=== PATIENT | male | born 2000 | race Caucasian/White ===

== ENCOUNTER 2023-07-14 04:22 | Emergency (ER) | payer OTHER ==
[~2023-07-14] VITALS: Ht 182.9 cm; Wt 77.3 kg
[2023-07-14 04:28] VITALS: TEMP 98
[2023-07-14] MEDS ORDERED: Ondansetron 4 MG/2 ML VIAL IV ONE (04:45)
[2023-07-14] MEDS ORDERED: NS 1,000 ML IV ONE (04:45)
[2023-07-14] MEDS ORDERED: Morphine 4 MG/ML VIAL IV ONE ×2 (04:45→05:45)
[2023-07-14] MEDS ORDERED: Ketorolac 30 MG/ML VIAL IV ONE (04:45)
[2023-07-14 04:54] LABS: BASO % 0.4 % (0.0-2.0); EOS # 0.1 K/mm3 (0.0-0.7); EOS % 1.2 % (0.0-4.0); GRAN # 8.2 K/mm3 (1.4-6.5); GRAN % 82.2 % (42.2-75.2); HEMATOCRIT 48.5 % (36.0-47.0); HEMOGLOBIN 16.5 g/dl (12.5-16.1); LYMPH # 0.8 K/mm3 (1.2-3.4); LYMPH % 7.7 % (20.0-51.0); MEAN CELL VOLUME 88 fl (80.0-95.0); MEAN CORPUSCULAR HEMOGLOBIN 30 pg (26-32); MEAN CORPUSCULAR HGB CONC 34 g/dl (33.0-37.0); MEAN PLATELET VOLUME 9.1 fl (7.4-10.4); MONO # 0.8 K/mm3 (0.1-0.6); MONO % 8.3 % (1.7-9.3); PLATELET COUNT 259 K/mm3 (130-400); RED BLOOD COUNT 5.54 M/mm3 (4.20-5.60); REDCELL DISTRIBUTION WIDTH-CV 12.6 % (11.5-14.5)
[2023-07-14] MEDS ORDERED: Iohexol 300 - 100 ML VIAL IV ONE (05:09)
[2023-07-14] MEDS ORDERED: NS 50 ML IV SCH (05:09)
[2023-07-14 05:13] LABS: ALBUMIN 4.4 g/dL (3.5-5.0); BILIRUBIN,TOTAL 1.6 mg/dL (0.2-1.2); C-REACTIVE PROTEIN 0.04 mg/dL (0.00-0.50); CALCIUM 9.6 mg/dL (8.4-10.2); CREATININE, serum 0.91 mg/dL (0.72-1.25); POTASSIUM 4.4 mEq/L (3.5-4.5); TOTAL PROTEIN 6.8 g/dl (6.2-8.1)
[2023-07-14 05:58] LABS: COLLECTION METHOD CLEAN CATCH
[2023-07-14] MEDS ORDERED: NAPROSYN500 MG PO (06:03)
[2023-07-14] MEDS ORDERED: ROXICODONE 55 MG/TAB PO (06:03)
[2023-07-14] MEDS ORDERED: ZOFRAN ODT4 MG PO (06:03)
[2023-07-14 06:06] LABS: PH 5.5 (5.0-8.5); URINE APPEARANCE CLEAR (CLEAR/HAZY); URINE BLOOD NEGATIVE (NEGATIVE); URINE COLOR YELLOW (YELLOW); URINE GLUCOSE NEGATIVE (NEGATIVE); URINE KETONE NEGATIVE (NEGATIVE); URINE NITRATE NEGATIVE (NEGATIVE); URINE PROTEIN(semi-quant) 1+ (NEGATIVE)
[2023-07-14 06:33] VITALS: BP 112/67; PULSE 81
[2023-07-14] MEDS ORDERED: ZESTRIL 20MG TA20 MG PO (23:32)
[2023-07-14] MEDS ORDERED: ASPIRIN 81M81 MG/TA2 PO (23:33)
== END 2023-07-14 06:43 | disposition home or self-care (01) ==
LOC: COL.ER 04:22
PROVIDERS: Emergency Medicine
DX: R10.9 Unspecified abdominal pain (principal); R11.2 Nausea with vomiting, unspecified
CPT/HCPCS: J1885; J2270; J2405; J7030; Q9967

== ENCOUNTER 2023-07-14 17:52 | Observation (INO) | payer OTHER ==
[~2023-07-14] VITALS: Ht 182.9 cm; Wt 74.1 kg
[~2023-07-14 17:52] MED LIST changes: -AMOXICILLIN 8751 TAB PO; -ASPIRIN 81M81 MG/TA2 PO; -ZESTRIL 20MG TA20 MG PO; -ZOFRAN 4MG T4 MG/TAB PO
[2023-07-14] MEDS ORDERED: NS 1,000 ML IV ONE ×2 (18:30→21:00)
[2023-07-14] MEDS ORDERED: Ondansetron 4 MG/2 ML VIAL IV ONE (18:30)
[2023-07-14 18:53] LABS: HEMATOCRIT 48.1 % (36.0-47.0); HEMOGLOBIN 16.5 g/dl (12.5-16.1); MEAN CELL VOLUME 87 fl (80.0-95.0); MEAN CORPUSCULAR HEMOGLOBIN 30 pg (26-32); MEAN CORPUSCULAR HGB CONC 34 g/dl (33.0-37.0); MEAN PLATELET VOLUME 9.3 fl (7.4-10.4); PLATELET COUNT 334 K/mm3 (130-400); RED BLOOD COUNT 5.53 M/mm3 (4.20-5.60); REDCELL DISTRIBUTION WIDTH-CV 12.4 % (11.5-14.5)
[2023-07-14] MEDS ORDERED: Ketorolac 15 MG/ML VIAL IV ONE (19:00)
[2023-07-14 19:12] LABS: ALBUMIN 4.7 g/dL (3.5-5.0); BILIRUBIN,TOTAL 2.3 mg/dL (0.2-1.2); CALCIUM 9.9 mg/dL (8.4-10.2); CREATININE, serum 0.87 mg/dL (0.72-1.25); POTASSIUM 4.2 mEq/L (3.5-4.5); TOTAL PROTEIN 7.2 g/dl (6.2-8.1)
[2023-07-14 19:20] LABS: BASOPHIL 1 % (0-2); LYMPHOCYTE 3 % (20.0-51.0); NEUTROPHILS 93 % (42.0-75.2)
[2023-07-14] MEDS ORDERED: droPERidol 2.5 MG/ML 2 ML VIAL IV ONE (19:30)
[2023-07-14] MEDS ORDERED: NS 50 ML IV SCH (19:44)
[2023-07-14] MEDS ORDERED: Iohexol 300 - 100 ML VIAL IV ONE (19:44)
[2023-07-14] MEDS ORDERED: Morphine 4 MG/ML VIAL IV ONE (20:45)
[2023-07-14 23:23] LABS: COLLECTION METHOD CLEAN CATCH
[2023-07-14] MEDS ORDERED: ZESTRIL 20MG TA20 MG PO (23:32)
[2023-07-14] MEDS ORDERED: ASPIRIN 81M81 MG/TA2 PO (23:33)
[2023-07-14 23:47] LABS: URINE APPEARANCE CLEAR (CLEAR/HAZY); URINE BLOOD NEGATIVE (NEGATIVE); URINE COLOR YELLOW (YELLOW); URINE GLUCOSE NEGATIVE (NEGATIVE); URINE KETONE 2+ (NEGATIVE); URINE NITRATE NEGATIVE (NEGATIVE); URINE PROTEIN(semi-quant) 1+ (NEGATIVE); URINE UROBILINOGEN 0.2 E.U/dL (0.2-1.0)
[2023-07-15] VITALS (12 sets, daily range): BP systolic 110–149; BP diastolic 53–86; PULSE 64–85; TEMP 97.9–98.9
--- NOTE | 2023-07-15 00:04 | NUR ---
pt arrived to room 347 from ED at 2355. pt ambulated to bed with little to no nausea. pt now resting in bed. admission, physical assessment, and med rec complete. call light in reach. all needs met at this time.
[2023-07-15] MEDS ORDERED: Ondansetron 4 MG/2 ML VIAL IV PRN (00:15)
[2023-07-15] MEDS ORDERED: Morphine 4 MG/ML VIAL IV PRN (00:30)
[2023-07-15] MEDS ORDERED: oxyCODONE 5 MG TAB PO PRN (00:30)
--- NOTE | 2023-07-15 00:56 | NUR ---
pt c/o 09/22 low back pain radiating to abd. prn morphine administered per orders.
--- NOTE | 2023-07-15 05:19 | NUR ---
pt c/o increased low back pain. pain rated 6/10. prn oxycodone administered per orders.
--- NOTE | 2023-07-15 06:26 | NUR ---
pt c/o continued low back pain. rated 6/10. prn morphine administered per orders.
--- NOTE | 2023-07-15 09:10 | NUR ---
Fl[employer]per met with patient to complete intake for discharge planning. Patient shared that he lives in [place] with his girlfriend Dang Barnes ([phone]). He lists his mother Wes Talbot ([phone]) as his next of kin. Patient sees Dr. Miguel as his PCP and uses [facility] without difficulty. Patient has R insurance. 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 Patient denies any discharge needs at this time. Patient is hopeful to not need IV antibiotics at discharge. Discharge plan: Home
--- NOTE | 2023-07-15 12:56 | NUR ---
PT RESTING IN BED, PO PAIN MEDS KEEPING PAIN CONTROLLED. NOTHER AT BEDSIDE. QUESTIONS SOLICITED AND ANSWERED. DR MODI IN TO SEE PT THIS AM.
--- NOTE | 2023-07-15 19:13 | NUR ---
report received from carlos mariano. pt resting in bed with mom at bedside. pt reporting prn given by previous shift has relieved his pain. call light in reach. all needs met at this time.
--- NOTE | 2023-07-15 20:34 | NUR ---
shift assessment complete, see documentation. pt resting in bed watching tv. pt reports pain is managable right now. call light in reach. all needs met at this time.
--- NOTE | 2023-07-15 22:12 | NUR ---
pt reporting increased pain rated 6/10. prn oxycodone administered per orders.
[2023-07-16 00:13] VITALS: BP 131/79; PULSE 78; TEMP 98.3
--- NOTE | 2023-07-16 00:40 | NUR ---
pt reported nausea when he went to use the bathroom. small emesis episode noted. green in color with some mucous noted. prn zofran administered per orders. sprite and saltine crackers given. pt asymptomatic otherwise.
[2023-07-16 01:16] VITALS: BP_SYST 131
--- NOTE | 2023-07-16 02:00 | NUR ---
pt reporting nausea has subsided and he tolerated crackers/sprite without issue. pt now reporting 8/10 left sided low back pain. prn oxycodone administered per orders.
[2023-07-16 03:54] VITALS: BP 122/70; PULSE 83; TEMP 98.2
[2023-07-16 05:24] VITALS: BP_SYST 122
--- NOTE | 2023-07-16 06:11 | NUR ---
pt reporting increased pain rated 7/10. prn oxycodone administered per orders.
[2023-07-16 07:07] LABS: BASO % 0.5 % (0.0-2.0); EOS % 0.4 % (0.0-4.0); GRAN % 74.9 % (42.2-75.2); LYMPH # 0.8 K/mm3 (1.2-3.4); LYMPH % 9.8 % (20.0-51.0); MEAN CELL VOLUME 89 fl (80.0-95.0); MEAN CORPUSCULAR HGB CONC 34 g/dl (33.0-37.0); MEAN PLATELET VOLUME 9.7 fl (7.4-10.4); MONO # 1.1 K/mm3 (0.1-0.6); RED BLOOD COUNT 4.85 M/mm3 (4.20-5.60); REDCELL DISTRIBUTION WIDTH-CV 12.2 % (11.5-14.5)
[2023-07-16 07:09] LABS: HEMOGLOBIN 14.5 g/dl (12.5-16.1); MEAN CORPUSCULAR HEMOGLOBIN 30 pg (26-32); PLATELET COUNT 227 K/mm3 (130-400)
[2023-07-16 07:25] LABS: ALBUMIN 4.3 g/dL (3.5-5.0); BILIRUBIN,DIRECT 0.5 mg/dL (0.0-0.5); BILIRUBIN,TOTAL 3.2 mg/dL (0.2-1.2); TOTAL PROTEIN 6.3 g/dl (6.2-8.1)
[2023-07-16 08:02] VITALS: BP 119/69; PULSE 82; TEMP 98.9
[2023-07-16] MEDS ORDERED: ROXICODONE 55 MG/TAB PO (08:30)
[2023-07-16] MEDS ORDERED: ZOFRAN 4MG T4 MG/TAB PO (08:35)
--- NOTE | 2023-07-16 08:47 | NUR ---
PT RESTING IN BED. PAIN CONTROLLED WITH PO MEDS. DR GUZMAN IN TO ROUND ON PT. PLAN ON DISCHARGE LATER TODAY.
[2023-07-16 09:00] VITALS: BP_SYST 119
[2023-07-16] MEDS ORDERED: AMOXICILLIN 8751 TAB PO (09:53)
--- NOTE | 2023-07-16 10:31 | NUR ---
DISCHARGE INSTRUCTIONS REVIEWED WITH PT AND FAMILY. QUESTIONS SOLICITED. PT SHOWERED INDEPENDENTLY PRIOR TO DISCHARGE. PT LEFT UNIT AMBULATORY WITH STAFF.
== END 2023-07-16 10:33 | disposition home or self-care (01) ==
LOC: COL.ER 17:52 → SURG 23:07 → COL.ER 23:07 → SURG 07-16 10:33
PROVIDERS: Internal Medicine Gastroenterology; Physician Assistant; ADMIT Internal Medicine
DX: A41.9 Sepsis, unspecified organism (principal); L72.0 Epidermal cyst; R19.09 Other intra-abdominal and pelvic swelling, mass and lump; R82.81 Pyuria; E80.7 Disorder of bilirubin metabolism, unspecified
CPT/HCPCS: OP; G0378; J1790; J1885; J2270; J2405; J2543; J7030; Q9967

== ENCOUNTER → 2023-07-14 | Outpatient (CLI) | payer OTHER ==
[~2023-07-14] MED LIST: AMOXICILLIN 8751 TAB PO; ASPIRIN 81M81 MG/TA2 PO; NAPROSYN500 MG PO; ROXICODONE 55 MG/TAB PO; ZESTRIL 20MG TA20 MG PO; ZOFRAN 4MG T4 MG/TAB PO; ZOFRAN ODT4 MG PO
== END ==
LOC: COL.RAD 08:50
DX: R59.0 Localized enlarged lymph nodes (principal)

== ENCOUNTER 2023-09-04 08:59 | Emergency (ER) | payer OTHER ==
[~2023-09-04] VITALS: Ht 182.9 cm; Wt 72.7 kg
[~2023-09-04 08:59] MED LIST changes: +AMOXICILLIN 8751 TAB PO; +ASPIRIN 81M81 MG/TA2 PO; +ZESTRIL 20MG TA20 MG PO; +ZOFRAN 4MG T4 MG/TAB PO
[2023-09-04 09:03] VITALS: TEMP 98.6
[2023-09-04] MEDS ORDERED: NS 1,000 ML IV ONE (09:15)
[2023-09-04] MEDS ORDERED: Iohexol 300 - 100 ML VIAL IV ONE (09:24)
[2023-09-04] MEDS ORDERED: NS 100 ML IV SCH (09:25)
[2023-09-04 09:32] LABS: BASO % 0.5 % (0.0-2.0); EOS # 0.2 K/mm3 (0.0-0.7); EOS % 2.7 % (0.0-4.0); GRAN # 3.5 K/mm3 (1.4-6.5); GRAN % 64.4 % (42.2-75.2); HEMATOCRIT 45.6 % (36.0-47.0); HEMOGLOBIN 15.2 g/dl (12.5-16.1); LYMPH # 1.2 K/mm3 (1.2-3.4); LYMPH % 21.4 % (20.0-51.0); MEAN CELL VOLUME 88 fl (80.0-95.0); MEAN CORPUSCULAR HEMOGLOBIN 29 pg (26-32); MEAN CORPUSCULAR HGB CONC 33 g/dl (33.0-37.0); MEAN PLATELET VOLUME 9.2 fl (7.4-10.4); MONO # 0.6 K/mm3 (0.1-0.6); MONO % 10.8 % (1.7-9.3); PLATELET COUNT 256 K/mm3 (130-400); RED BLOOD COUNT 5.21 M/mm3 (4.20-5.60); REDCELL DISTRIBUTION WIDTH-CV 12.8 % (11.5-14.5)
[2023-09-04 09:38] LABS: INR 1.2 (0.8-3.0)
[2023-09-04 10:03] LABS: ALBUMIN 4.6 g/dL (3.5-5.0); BILIRUBIN,TOTAL 2.8 mg/dL (0.2-1.2); CALCIUM 10.2 mg/dL (8.4-10.2); CREATININE, serum 0.86 mg/dL (0.72-1.25); POTASSIUM 4.3 mEq/L (3.5-4.5); TOTAL PROTEIN 6.9 g/dl (6.2-8.1)
[2023-09-04 11:15] LABS: TRICYCLIC ANTIDEPRESS URINE NEGATIVE (NEGATIVE)
[2023-09-04 13:23] VITALS: BP 119/70; PULSE 64
== END 2023-09-04 13:23 | disposition short-term general hospital (02) ==
LOC: COL.ER 08:59
PROVIDERS: Emergency Medicine
DX: I63.9 Cerebral infarction, unspecified (principal); Z98.61 Coronary angioplasty status; Z79.82 Long term (current) use of aspirin; Z79.899 Other long term (current) drug therapy
CPT/HCPCS: J3101; J7030; Q9967